=== PATIENT | male | born 1985 | race Caucasian/White ===

== ENCOUNTER 2016-06-06 03:04 | Emergency (ER) | payer OTHER ==
[~2016-06-06 03:04] MED LIST: BACTRIM DS TABL1 TA1 PO; CIPRO PO; CIPRO250 MG PO; CLEOCIN HCL300 M1 PO; FAMOTIDINE PO; FLEXERIL10 MG PO; FLOMAX0.4 M1 DOB; FLOMAX0.4 M1 PO; HYDROCODONE-APA1 T30 PO; IBUPROFEN800 MG PO; LEVAQUIN PO; NO MEDICATIONS; PERCOCET 5-3251 TAB PO; PERCOCET 51 UDTAB 5/ PO; PYRIDIUM PO; TYLOX1 CAP 5/50 PO; VOLTAREN50 MG PO; ZOFRAN PO
[2016-06-06 07:27] LABS: AMPHETAMINE POS (NEG); BARBITURATES NEG (NEG); BENZODIAZEPINES POS (NEG); COCAINE NEG (NEG); MARIJUANA NEG (NEG); OPIATES NEG (NEG); TRICYCLIC ANTIDEPRESSANTS NEG (NEG); U METHADONE NEG (NEG)
== END 2016-06-06 08:06 | disposition home or self-care (01) ==
LOC: CED 03:04
PROVIDERS: Nurse Practitioner Family
DX: H11.33 Conjunctival hemorrhage, bilateral (principal); F19.10 Other psychoactive substance abuse, uncomplicated
CPT/HCPCS: 80307; 99283